=== PATIENT | female | born 1980 | race Caucasian/White ===

== ENCOUNTER 2017-01-06 17:24 | Inpatient (IN) | payer OTHER ==
[~2017-01-06] VITALS: Ht 172.7 cm; Wt 80.0 kg
[~2017-01-06 17:24] MED LIST: ALBUTEROL SULF8.5 GM; METAMUCIL POWD283 GM PO; MILK OF MA400 MG/5 M PO; NORCO 5-325 TA1 EACH PO; ZOFRAN ODT8 MG PO
--- NOTE | 2017-01-08 07:29 | PR ---
[facility] [address] [facility] [place], [place] [address] Signed PP Progress Notes Datetime Report Generated by CPN: 01/08/2017 07:29 SUBJECTIVE: [id number] Pain: Within normal limits Nausea/Vomiting: Denies Vital Signs: [id number] Vital Signs: Reviewed; Within Normal Limits EXAM: [id number] Cardiovascular: Not Done Respiratory: Not Done Abdomen/Uterus: Abnormal Lochia: Normal Vulva/Perineum: Not Done Breasts: Not Done CVA Tenderness: Not Done Extremities: Normal Incision: Not Applicable Progress: Abnormal Exam Comments: Fundus firm, NT @ U-1. IMPRESSION/PLAN/PROCEDURES: [id number] Impression: Normal progression; difficulties Plan: Continue present management Progress Notes: Doing well except for breast feeding. Signing Physician: Alexa Marcum MD CC: *Electronically Signed* 01/08/17 0729 ALEXA MARCUM MD PATIENT NAME: SOSA MCKINNEY PROGRESS NOTE DATE OF : 82 PHYSICIAN: ALEXA MARCUM MD RPT #: [id number] REPORT IS CONFIDENTIAL AND NOT TO BE RELEASED WITHOUT AUTHORIZATION
== END 2017-01-08 14:30 | disposition home or self-care (01) | DRG 775 ==
LOC: FBCO 17:24 → FBC 18:30
PROVIDERS: ADMIT Obstetrics & Gynecology
PROC: 10E0XZZ Delivery of Products of Conception, External Approach (ICD-10-PCS; principal; 2017-01-07)
PROC: 0HQ9XZZ Repair Perineum Skin, External Approach (ICD-10-PCS; 2017-01-07)
DX: O42.02 Full-term premature rupture of membranes, onset of labor within 24 hours of rupture (principal); Z3A.37 37 weeks gestation of pregnancy; Z37.0 Single live birth; O70.0 First degree perineal laceration during delivery; O99.333 Smoking (tobacco) complicating pregnancy, third trimester
CPT/HCPCS: 01960; 59025; 84112; 85027; 99213; J2590; J3010; J7120

== ENCOUNTER 2020-07-20 06:32 | Emergency (ER) | payer OTHER ==
[~2020-07-20] VITALS: Ht 172.7 cm; Wt 71.0 kg
[~2020-07-20 06:32] MED LIST changes: +DEPO-PROVE150 MG/11 IM; +IBUPROFEN600 MG PO; +OXYCODON-ACETA1 EAC2 PO; +TYLENOL325 MG PO; +WOMEN'S DAILY1 EACH PO
== END 2020-07-20 06:56 | disposition home or self-care (01) ==
LOC: ED 06:32
DX: M54.2 Cervicalgia (principal); J45.909 Unspecified asthma, uncomplicated; F17.200 Nicotine dependence, unspecified, uncomplicated; Z91.040 Latex allergy status; Z79.899 Other long term (current) drug therapy
CPT/HCPCS: 99283

== ENCOUNTER 2021-11-17 10:31 | Emergency (ER) | payer OTHER ==
[~2021-11-17] VITALS: Ht 172.7 cm; Wt 66.1 kg
[~2021-11-17 10:31] MED LIST changes: +CALCIUM500 M1 PO; +FISH OIL 1,001000 MG PO; +PROZAC40 MG PO; +VITAMIN E100 UNI2 PO
== END 2021-11-17 12:15 | disposition home or self-care (01) ==
LOC: ED 10:31
DX: S50.11XA Contusion of right forearm, initial encounter (principal); J45.909 Unspecified asthma, uncomplicated; F17.200 Nicotine dependence, unspecified, uncomplicated; Z91.040 Latex allergy status; Z88.0 Allergy status to penicillin; W01.0XXA Fall on same level from slipping, tripping and stumbling without subsequent striking against object, initial encounter
CPT/HCPCS: 73090; 99283-25